=== PATIENT | female | born 1995 | race Caucasian/White ===

== ENCOUNTER 2016-07-03 17:54 | Outpatient (CLI) | payer OTHER ==
--- NOTE | 2016-07-03 18:52 | Non Stress Test Report ---
Non Stress Test Datetime Report Generated by CPN: 07/03/2016 18:52 DEMOGRAPHIC Test Number: 1 EGA NST: 27.1 INDICATION Indication for Study: Decreased Movement; Ordered by Provider MONITORING Monitor Explained: Monitor Explained; Test Explained; Patient Verbalized Understanding Time on Monitor: 07/03/2016 18:18 Time off Monitor: 07/03/2016 18:48 NST Duration: 30 NST INTERVENTIONS NST Interventions: PO Hydration; Reposition Patient Physician Notified NST: Dr. Heath BABY A: [id number] BABY A Contraction Frequency : None FHR Baseline : 135 Accelerations : 10X10 Decelerations : None Variability : Moderate 6-25bpm NST Review: Meets Criteria for Reactive NST NST Review and Verified By : Alejandro Ellison RN NST Results: Reactive NST REPORT Report Trigger: Send Report
--- NOTE | 2016-07-04 04:47 | L&D Flow Sheet ---
LD Flowsheet Datetime Report Generated by CPN: 07/04/2016 04:45 Datetime: 07/03/2016 18:47 Communication Communication Comments: pt stating that since she has been laying down at the hospital she has felt the baby move a bunch (Brianda Scot, RN) Datetime: 07/03/2016 18:44 Communication Communication Comments: Dr. Heath on unit, FHR strip reviewed by MD. Order recieved to d/c pt home (Brianda Scot, RN) Datetime: 07/03/2016 18:33 Patient Care Patient Position/Activity: Right Lateral (Connie Vitrano, RN) Datetime: 07/03/2016 18:25 Pain Pain Scale: 0 (Brianda Scot, RN) Pain Presence: None/Denies (Brianda Soct, RN) Pain Type: N/A (Brianda Scot, RN) Vaginal Exam Vaginal Bleeding: None (Brianda Scot, RN) Maternal Assessment Level of Consciousness: Fully Conscious (Brianda Scot, RN) Headache: Denies (Brianda Scot, RN) Breath Sounds, Left: Clear and Equal (Brianda Scot, RN) Breath Sounds, Right: Clear and Equal (Brianda Scot, RN) Nausea/Vomiting: Denies (Brianda Scot, RN) RUQ Epigastric Pain: Denies (Brianda Scot, RN) Datetime: 07/03/2016 18:21 I/O Interventions: Clear Liquids Given (Brianda Scot, RN) Datetime: 07/03/2016 18:19 Communication Communication Comments: Dr. Heath on unit, informed of pt report of decreased movement. Order recieved to obtain an NST with 2 10x10 accels and d/c pt home (Brianda Scot, RN) Datetime: 07/03/2016 18:18 Vital Signs NBP Sys/Denice/Mean (mmHg): 119 (QS system process) : 59 (QS system process) : 82 (QS system process) Pulse: 93 (QS system process) Datetime: 07/03/2016 18:17 Patient Care Patient Position/Activity: Right Tilt (Brianda Scot, RN)
--- NOTE | 2016-07-04 04:47 | L&D Admission Assessment ---
LD ADM ASMT Datetime Report Generated by CPN: 07/04/2016 04:45 PATIENT ASSESSMENT Assessment Type: Admission Assessment (07/03/2016 18:25:Brianda Scot, RN) WEIGHT Weight (lb): 213 (07/03/2016 18:13:QS system process) Weight (kg): 96.8 (07/03/2016 18:13:QS system process) PAIN Pain Scale: 0 (07/03/2016 18:25:Brianda Scot, RN) Pain Presence: None/Denies (07/03/2016 18:25:Brianda Scot, RN) Pain Type: N/A (07/03/2016 18:25:Brianda Scot, RN) NEURO Level of Consciousness: Fully Conscious (07/03/2016 18:25:Brianda Scot, RN) Headache: Denies (07/03/2016 18:25:Brianda Scot, RN) Dizziness: No (07/03/2016 18:25:Brianda Scot, RN) Blurred Vision: No (07/03/2016 18:25:Brianda Scot, RN) Extremity Numbness/Tingling : None (07/03/2016 18:25:Biranda Scot, RN) Extremity Movement: Full Range of Motion (07/03/2016 18:25:Brianda Scot, RN) CARDIOVASCULAR Heart Rhythm: Regular (07/03/2016 18:25:Brianda Scot, RN) Nailbeds: [place] (07/03/2016 18:25:Brianda Scot, RN) Capillary Refill: Less than 3 Seconds (07/03/2016 18:25:Brianda Scot, RN) Lower Extremities Edema: None (07/03/2016 18:25:Brianda Scot, RN) Lower Extremities Edema Degree: None (07/03/2016 18:25:Brianda Scot, RN) Upper Extremities Edema: None (07/03/2016 18:25:Brianda Scot, RN) Upper Extremities Edema Degree: None (07/03/2016 18:25:Brianda Scot, RN) Facial Edema: None (07/03/2016 18:25:Brianda Scot, RN) RESPIRATORY Respiratory Effort: Unlabored; Regular Rhythm; Equal Expansion (07/03/2016 18:25:Brianda Scot, RN) Breath Sounds, Left: Clear and Equal (07/03/2016 18:25:Brianda Scot, RN) Breath Sounds, Right: Clear and Equal (07/03/2016 18:25:Brianda Scot, RN) Cough Productivity: None (07/03/2016 18:25:Brianda Scot, RN) GASTROINTESTINAL Nausea/Vomiting: Denies (07/03/2016 18:25:Brianda Ellison, RN) Bowel Sounds: Normoactive (07/03/2016 18:25:Brianda Ellison RN) RUQ Epigastric Pain: Denies (07/03/2016 18:25:Brianda Ellison RN) Bowel Patterns: Soft, Formed Stool (07/03/2016 18:25:Brianda Ellison RN) Hemorrhoids: None (07/03/2016 18:25:Brianda Ellison RN) Diet Type: Regular diet (07/03/2016 18:25:Brianda Ellison RN) Last Meal: 07/03/2016 17:00 (07/03/2016 18:25:Brianda Ellison, RN) GENITOURINARY Bladder: Nondistended (07/03/2016 18:25:Brianda Scot, RN) Vaginal Bleeding: None (07/03/2016 18:25:Brianda Scot, RN) INTEGUMENTARY Skin Color: Normal for Race (07/03/2016 18:25:Brianda Ellison RN) Skin Temperature: Warm (07/03/2016 18:25:Brianda Ellison RN) Skin Moisture: Dry (07/03/2016 18:25:Brianda Ellison, JOSE ANGEL) PATRICK SKIN ASSESSMENT Patrick Scale Sensory Perception: No Impairment- Responds to verbal commands. Has no sensory deficit which would limit ability to feel or voice pain or discomfort (07/03/2016 18:25:Brianda Ellison RN) Patrick Scale Moisture: Rarely Moist- Skin is usually dry. Linen only requires changing at routine intervals (07/03/2016 18:25:Brianda Ellison RN) Patrick Scale Activity: Walks Frequently- Walks outside the room at least twice a day and inside room at least every 2 hours during the day. (07/03/2016 18:25:Brianda Ellison RN) Patrick Scale Mobility: No Limitations- Makes major and frequent changes in position without assistance (07/03/2016 18:25:Brianda Ellison RN) Patrick Scale Nutrition: Excellent- Eats most of every meal. Never refuses a meal. Usually eats a total of 4 or more servings of meat and dairy products. Occasionally eats between meals. Does not require supplementation (07/03/2016 18:25:Brianda Ellison RN) Patrick Scale Friction and Shear: No Apparent Problem- Moves in bed and in chair independently and has sufficient muscle strength to lift up completely during move. Maintains good position in bed or chair at all times (07/03/2016 18:25:Brianda Ellison RN) Patrick Scale Total: 23 (07/03/2016 18:25:QS system process) Patrick Scale Risk: No Risk of Pressure Ulcer Noted at this Time (07/03/2016 18:25:QS system process) SUPPORT Emotional State: Calm/Relaxed (07/03/2016 18:25:Brianda Ellison RN) SAFETY [place] Within Reach: Yes (07/03/2016 18:25:Brianda Ellison RN) Side Rails Up: Yes (07/03/2016 18:25:Brianda Ellison RN) Bed Wheels Locked: Yes (07/03/2016 18:25:Brianda Ellison RN) Arm Bands Present: Yes (07/03/2016 18:25:Brianda Ellison RN) Isolation: [place] (07/03/2016 18:25:Brianda Ellison RN) FALL SCREEN Fall Risk History of Falling: (0) No (07/03/2016 18:25:Brianda Ellison RN) Fall Risk Secondary Diagnosis: (0) No (07/03/2016 18:25:Brianda Ellison RN) Fall Risk Ambulatory Aid: (0) None/Bedrest/Wheelchair/Nurse Assist (07/03/2016 18:25:Brianda Ellison RN) Fall Risk IV Therapy: (0) No (07/03/2016 18:25:Brianda Ellison RN) Fall Risk Gait: (0) Normal/Bedrest/Immobile (07/03/2016 18:25:Brianda Ellison RN) Fall Risk Mental Status: (0) Oriented to Own Ability (07/03/2016 18:25:Brianda Ellison RN) Fall Risk Score: 0 (07/03/2016 18:25:QS system process) Fall Risk Score Definition: No Risk: No action required (07/03/2016 18:25:QS system process) ADDITIONAL COMMENTS Assessment Flag: Admission Assessment (07/03/2016 18:25:QS system process)
--- NOTE | 2016-07-04 04:47 | L&D Current Admission ---
Current Admit Datetime Report Generated by CPN: 07/04/2016 04:45 ADMISSION INFORMATION Chief Complaint: Decreased Movement (07/03/2016 18:25:Brianda Ellison, JOSE ANGEL)
--- NOTE | 2016-07-04 04:47 | L&D General Admission ---
General Admit Datetime Report Generated by CPN: 07/04/2016 04:45 INFORMATION Patient Age: 21 (07/03/2016 17:54:QS system process) EDC: 10/01/2016 00:00 (07/03/2016 18:10:Brianda Ellison, RN) : 1 (07/03/2016 18:10:Brianda Ellison, RN) Para: 0 (07/03/2016 18:57:Brianda Ellison RN) Para: 0 (07/03/2016 18:10:Brianda Ellison, RN) CARE Primary Membership Secretary: [email or web address] (07/03/2016 18:10:Brianda Ellison RN) Adequate Care: Yes (07/03/2016 18:10:Brianda Ellison RN) Height (in): 69 (07/03/2016 18:13:QS system process) ALLERGIES Medication Allergy: No (07/03/2016 18:10:Brianda Ellison RN) Medication Allergies: No Known Allergies (07/03/2016) (07/03/2016 18:12:QS system process) Latex Allergy: No Latex Allergies (07/03/2016 18:10:Brianda Ellison RN) COMMUNICATION Primary Language: Belizean (07/03/2016 18:10:Brianda Ellison RN) Medical Tx Preferred Language: Belizean (07/03/2016 18:10:Brianda Ellison RN) DEMOGRAPHICS Address: [facility] [place] [address] [place] [address] (07/03/2016 17:54:QS system process) Zipcode: [address] (07/03/2016 17:54:QS system process) Home (07/03/2016 17:54:QS system process) SSN: [id number] (07/03/2016 17:54:QS system process) Next of Kin Name: REJI QUAN (07/03/2016 17:54:QS system process) Next of Kin (07/03/2016 17:54:QS system process) Next of Kin Relationship: SPO (07/03/2016 17:54:QS system process) Date of : 1995 (07/03/2016 17:54:QS system process) Marital Status: (07/03/2016 17:54:QS system process) Sex: Female (07/03/2016 17:54:QS system process) Race: (07/03/2016 17:54:QS system process) Ethnicity: Non- or (07/03/2016 17:54:QS system process) Restorationism: None (07/03/2016 17:54:QS system process) DRUG AND ALCOHOL USE Alcohol: No (07/03/2016 18:10:Brianda Ellison RN) Cigarettes: Never Smoker. [id number] (07/03/2016 18:10:Brianda Ellison RN) Marijuana: No (07/03/2016 18:10:Brianda Ellison RN) Cocaine: No (07/03/2016 18:10:Brianda Ellison RN) Other Illicit Drugs: No (07/03/2016 18:10:Brianda Ellison RN) VACCINE HISTORY Influenza Vaccine: Yes (07/03/2016 18:10:Brianda Ellison RN) Influenza Date: 04/18 (07/03/2016 18:10:Brianda Ellison RN) LABS Blood Type: O Positive (07/03/2016 18:10:Brianda Ellison RN) Antibody Screen: neg (07/03/2016 18:10:Brianda Ellison RN) Gonorrhea: Negative (07/03/2016 18:10:Brianda Ellison RN) Chlamydia: Negative (07/03/2016 18:10:Brianda Ellison RN) RPR/VDRL: Nonreactive (07/03/2016 18:10:Brianda Ellison RN) HIV Results: neg (07/03/2016 18:10:Brianda Ellison RN) Rubella: Non-Immune (07/03/2016 18:10:Brianda Ellison RN)
--- NOTE | 2016-07-04 04:47 | Antepartum Discharge Summary ---
Antepartum DC Datetime Report Generated by CPN: 07/04/2016 04:45 DIET/ACTIVITY/RESTRICTIONS Diet: Regular (07/03/2016 18:57:Brianda Scot, RN) Activity: Normal Activity (07/03/2016 18:57:Brianda Scot, RN) TEACHING/INSTRUCTIONS/REFERRALS Instructions Given To: pt (07/03/2016 18:57:Brianda Ellison, RN) Instructions Understood: Patient Verbalized Understanding (07/03/2016 18:57:Brianda Scot, RN) Referrals: None (07/03/2016 18:57:Brianda Ellison RN) Educational Materials- Other: kick counts (07/03/2016 18:57:Brianda Ellison RN) DISCHARGE INFORMATION Discharged AMA: No (07/03/2016 18:57:Brianda Ellison RN) Discharge Date/Time: 07/03/2016 18:55 (07/03/2016 18:57:Brianda Ellison RN) Discharged To: Home (07/03/2016 18:57:Brianda Ellison RN) Discharge Provider Name: Dr. Heath (07/03/2016 18:57:Brianda Ellison RN) Discharge Method: Ambulatory (07/03/2016 18:57:Brianda Ellison RN) Condition: Stable (07/03/2016 18:57:Brianda Ellison RN) FOLLOW UP INFORMATION Follow Up With: [facility] (07/03/2016 18:57:Brianda Ellison RN) Follow Up On: 1 Week (07/03/2016 18:57:Brianda Ellison RN) Follow Up Phone Number: [facility] - (07/03/2016 18:57:Brianda Ellison RN) Comments: Pt ambulated off unit in stable condition, instructed to follow up at [facility] at next scheduled appointment or sooner as needed. Instructed on when to return to hospital. 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
--- NOTE | 2016-07-04 04:47 | L&D Discharge Summary ---
OB Discharge Summary Datetime Report Generated by CPN: 07/04/2016 04:45 DISCHARGE DIAGNOSIS Diagnosis/Symptoms: Reassuring Surveillance - Annotate Details Diagnoses/Symptoms Other: Reactive NST Gestation: 27.1 Parity: 0 DIET/ACTIVITY/RESTRICTIONS Diet: Regular Activity: Normal Activity TEACHING/INSTRUCTIONS/REFERRALS Instructions Given To: pt Instructions Understood: Patient Verbalized Understanding Referrals: None Educational Materials- Other: kick counts DISCHARGE INFORMATION Discharged AMA: No Discharge Date/Time: 07/03/2016 18:55 Discharged To: Home Discharge Provider Name: Dr. Heath Discharge Method: Ambulatory Condition: Stable FOLLOW UP INFORMATION Follow Up With: [facility] Follow Up On: 1 Week Follow Up Phone Number: [facility] - Comments: Pt ambulated off unit in stable condition, instructed to follow up at [facility] at next scheduled appointment or sooner as needed. Instructed on when to return to hospital. 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
== END 2016-07-03 18:55 | disposition home or self-care (01) ==
LOC: LC 17:54
PROVIDERS: ATTEND Student in an Organized Health Care Education/Training Program
PROC: 4A1HXCZ Monitoring of Products of Conception, Cardiac Rate, External Approach (ICD-10-PCS; principal; 2016-07-03)
DX: O47.02 False labor before 37 completed weeks of gestation, second trimester (principal); Z3A.27 27 weeks gestation of pregnancy
CPT/HCPCS: 59025

== ENCOUNTER 2016-08-11 19:24 | Emergency (ER) | payer OTHER ==
--- NOTE | 2016-08-11 20:46 | ER Document Report ---
ED Medical Screen (RME) - General Stated Complaint: DIFFICULTY BREATHING Notes: 21 year old female, 33 weeks gestation, reports cough, congestion, coughing up yellow mucous, sick for about 3 days. Had influenza vaccine. Having some chills , no fever. No vomiting, no abdominal pain, no vaginal bleeding, feeling baby move. TRAVEL OUTSIDE OF THE [place] IN LAST 30 DAYS: No - Related Data Allergies/Adverse Reactions: No Known Allergies Allergy (Unverified 07/03/16 18:12) Physical Exam - Vital signs Vitals: Temp Pulse Resp BP Pulse Ox 98.3 F 108 H 16 134/84 H 100 08/11/16 19:45 08/11/16 19:45 08/11/16 19:45 08/11/16 19:45 08/11/16 19:45 - Respiratory Respiratory status: No: Labored, Tachypnea Breath sounds: Nonproductive cough. No: Decreased air movement, Wheezing Course - Re-evaluation Re-evalutation: congested, coughing, lungs clear, no hypoxia - Vital Signs Vital signs: Temp Pulse Resp BP Pulse Ox 98.3 F 108 H 16 134/84 H 100 08/11/16 19:45 08/11/16 19:45 08/11/16 19:45 08/11/16 19:45 08/11/16 19:45
[2016-08-11] MEDS ORDERED: ALBUTEROL SULFATE 0.083% NEB 2.5 MG/3 ML AMPUL NEB ONE (23:39)
--- NOTE | 2016-08-11 23:39 | ER Document Report ---
ED Respiratory Problem - General Chief Complaint: Breathing Difficulty Stated Complaint: DIFFICULTY BREATHING Time seen by provider: 23:39 Mode of Arrival: Ambulatory Information source: Patient TRAVEL OUTSIDE OF THE [place] IN LAST 30 DAYS: No - HPI Patient complains to provider of: Cough, Short of breath Onset: Other - 3-4 days Duration: Worse/persistent Quality of pain: Burning Severity: Moderate Pain Level: 3 Context: Short of Breath: Moderate Chest pain/discomfort: Heaviness Cough: Productive Sputum amount: Small Sputum color: Yellow Sputum consistency: Mucoid Associated symptoms: Chest pain/discomfort, Cough, Extertional dyspnea Similar symptoms previously: No Recently seen / treated by doctor: Yes Notes: Patient is a 21-year-old female who is approximately 32 weeks who presents to the emergency room complaining of burning chest heaviness, achiness , difficulty breathing, symptoms of been worsening since Thursday, she reports a cough productive of yellowish-brown phlegm today, she denies any recent travel, no injury, no sick contacts, no fever, no history of any underlying lung disease , currently taking vitamins, no recent surgical procedures - Related Data Allergies/Adverse Reactions: No Known Allergies Allergy (Unverified 07/03/16 18:12) Past Medical History - General Information source: Patient - Social History Smoking Status: Never Smoker Frequency of alcohol use: None Drug Abuse: None Family History: Reviewed & Not Pertinent Patient has suicidal ideation: No Patient has homicidal ideation: No Renal/ Medical History: Denies: Hx Peritoneal Dialysis Review of Systems - Review of Systems Constitutional: Chills EENT: No symptoms reported Cardiovascular: Chest pain, Dyspnea Respiratory: Cough, Short of breath Gastrointestinal: No symptoms reported Genitourinary: No symptoms reported Female Genitourinary: No symptoms reported Musculoskeletal: No symptoms reported Skin: No symptoms reported Hematologic/Lymphatic: No symptoms reported Neurological/Psychological: No symptoms reported -: Yes All other systems reviewed and negative Physical Exam - Vital signs Vitals: Temp Pulse Resp BP Pulse Ox 98.3 F 108 H 16 134/84 H 100 08/11/16 19:45 08/11/16 19:45 08/11/16 19:45 08/11/16 19:45 08/11/16 19:45 Interpretation: Tachycardic - General General appearance: Appears well, Alert - HEENT Head: Normocephalic, Atraumatic Eyes: Normal Pupils: PERRL - Respiratory Respiratory status: No respiratory distress Chest status: Nontender Breath sounds: Normal Chest palpation: Normal - Cardiovascular Rhythm: Regular Heart sounds: Normal auscultation Murmur: No - Abdominal Inspection: Normal Distension: No distension Bowel sounds: Normal Tenderness: Nontender Organomegaly: No organomegaly - Back Back: Normal, Nontender - Extremities General upper extremity: Normal inspection, Nontender, Normal color, Normal ROM , Normal temperature General lower extremity: Normal inspection, Nontender, Normal color, Normal ROM , Normal temperature, Normal weight bearing. No: Russell's sign - Neurological Neuro grossly intact: Yes Cognition: Normal Orientation: AAOx4 [place]cel[place] Coma Scale Eye Opening: Spontaneous [place]ia Coma Scale Verbal: Oriented [place] Coma Scale Motor: Obeys Commands [place] Coma Scale Total: 15 Speech: Normal Motor strength normal: LUE, RUE, LLE, RLE Sensory: Normal - Psychological Associated symptoms: Normal affect, Normal mood - Skin Skin Temperature: Warm Skin Moisture: Dry Skin Color: Normal Course - Re-evaluation Re-evalutation: 08/11/16 23:44 Patient's 32 weeks , complaining of chest heaviness and dyspnea on exertion, EKG shows signs of right heart strain, I discussed obtaining a CTA to rule out a PE with patient and spouse at bedside and they are in agreement, I believe the benefits out weigh the risks in this case and therefore we will proceed with obtaining a CTA - Vital Signs Vital signs: Temp Pulse Resp BP Pulse Ox 98.3 F 108 H 16 134/84 H 100 08/11/16 19:45 08/11/16 19:45 08/11/16 19:45 08/11/16 19:45 08/11/16 19:45 - EKG Interpretation by Me EKG shows normal: Sinus rhythm Rate: Tachycardia Discharge - Discharge Clinical Impression: Viral upper respiratory illness Condition: Stable Disposition: HOME, SELF-CARE Instructions: Viral Syndrome ([facility]), Upper Respiratory Illness ([facility]) Additional Instructions: Follow up with your primary care provider in one to 2 days. Return to the emergency room immediately if symptoms worsen or any additional concerns.
[2016-08-12 01:28] VITALS: BP 138/77
--- NOTE | 2016-08-12 23:55 | EKG REPORT ---
SEVERITY:- OTHERWISE NORMAL ECG - SINUS TACHYCARDIA : Confirmed by: Marivel Hudson 12-Aug-2016 23:55:02
== END 2016-08-12 01:37 | disposition home or self-care (01) ==
LOC: ER 19:24
DX: O99.519 Diseases of the respiratory system complicating pregnancy, unspecified trimester (principal); J06.9 Acute upper respiratory infection, unspecified; B97.89 Other viral agents as the cause of diseases classified elsewhere; O26.899 Other specified pregnancy related conditions, unspecified trimester; R05 Cough; R06.02 Shortness of breath; R07.9 Chest pain, unspecified; R00.0 Tachycardia, unspecified; R06.09 Other forms of dyspnea; Z79.899 Other long term (current) drug therapy; Z3A.00 Weeks of gestation of pregnancy not specified
CPT/HCPCS: 71275; 93005; 93010; 94640; 99285